=== PATIENT | male | born 1995 | race Caucasian/White ===

== ENCOUNTER 2016-10-19 14:14 | Emergency (ER) | payer OTHER ==
[2016-10-19 14:14] VITALS: BMI 22.4
[2016-10-19 14:20] VITALS: BP 136/67; PULSE 70; RESP 18; TEMP 98.2; O2SAT 98
--- NOTE | 2016-10-19 14:32 | ED PDOC ---
Lower Extremity Pain/Injury Time Seen by Provider: 10/19/16 14:25 Chief Complaint (Nursing): Lower Extremity Problem/Injury Chief Complaint (Provider): Left lower extremity pain History Per: Patient History/Exam Limitations: no limitations Onset/Duration Of Symptoms: Days, Waxing/Waning Additional Complaint(s): The patient is a 20yo male, presents to the ED for evaluation of left foot pain s/p straining it while running. Patient reports he heard a cracking noise and after which he was unable to move his foot or bear weight. He denies any numbness or tingling and reports taking Tylenol for pain with minimal relief. Patient offers no additional medical complaints. - Ankle/Foot Currently Unable To: Bear Weight Past Medical History Reviewed: Historical Data, Nursing Documentation, Vital Signs Vital Signs: Last Vital Signs Temp 98.2 F 10/19/16 14:16 Pulse 70 10/19/16 14:16 Resp 18 10/19/16 14:16 BP 136/67 10/19/16 14:16 Pulse Ox 98 10/19/16 14:16 - Medical History PMH: No Chronic Diseases - Surgical History Other surgeries: sebaceous cyst removal - Family History Family History: States: Unknown Family Hx - Living Arrangements Living Arrangements: With Family - Home Medications Home Medications: Ambulatory Orders Medication Instructions Recorded Phenazopyridine [Phenazopyridine 200 mg PO TID #6 tab 12/10/15 HCl] Sulfamethoxazole/Trimethoprim 1 each PO BID #14 tablet 12/10/15 [Bactrim 400-80 mg Tablet] Ibuprofen [Motrin] 600 mg PO Q8 PRN #21 tab 10/19/16 - Allergies Allergies/Adverse Reactions: Allergies Allergy/AdvReac Type Severity Reaction Status Date / Time Penicillins Allergy RASH Verified 12/10/15 14:18 Review of Systems ROS Statement: Except As Marked, All Systems Reviewed And Found Negative Musculoskeletal: Positive for: Foot Pain (left) Neurological: Negative for: Weakness, Numbness Physical Exam - Reviewed Nursing Documentation Reviewed: Yes Vital Signs Reviewed: Yes - Physical Exam Appears: Positive for: Well, Non-toxic, No Acute Distress Head Exam: Positive for: ATRAUMATIC, NORMAL INSPECTION, NORMOCEPHALIC Skin: Positive for: Normal Color, Warm, DRY Eye Exam: Positive for: Normal appearance Neck: Positive for: Normal Cardiovascular/Chest: Positive for: Regular Rate, Rhythm Respiratory: Negative for: Respiratory Distress Extremity: Positive for: Normal ROM, Tenderness (mid foot swelling and tenderness in left foot). Negative for: Deformity Neurologic/Psych: Positive for: Alert, Oriented. Negative for: Motor/Sensory Deficits - ECG O2 Sat by Pulse Oximetry: 98 (RA) Medical Decision Making Medical Decision Making: Time: 1425 Impression: Left foot injury r/o fracture Plan: -- Motrin 600 mg PO -- XR left foot Reassess Time: 1445 Foot XR as read by provider indicated fracture of left 3rd metatarsal. Call placed to podiatry. Seen by podiatry resident in ED. Placed in Correia dressing and Splinted with crutch instruction. Scribe Attestation: Documented by Hoda Garza acting as a scribe for COOKIE Zabala Provider Attestation: All medical record entries made by the Scribe were at my direction and personally dictated by me. I have reviewed the chart and agree that the record accurately reflects my personal performance of the history, physical exam, medical decision making, and the department course for this patient. I have also personally directed, reviewed, and agree with the discharge instructions and disposition. Disposition - Clinical Impression Clinical Impression: Metatarsal bone fracture - Patient ED Disposition Is Patient to be Admitted: No - Disposition Referrals: Patrick Bae DPM [Staff Provider] - Disposition: Routine/Home Disposition Time: 15:34 Condition: FAIR Prescriptions: Ibuprofen [Motrin] 600 mg PO Q8 PRN #21 tab PRN Reason: Pain, Moderate (4-7) Instructions: Foot Fracture in Adults (ED) Forms: [facility] (Mongolian), [facility] ED School/Work Excuse
--- NOTE | 2016-10-19 14:51 | RAD ---
PROCEDURE: Left Foot Radiographs. HISTORY: injury COMPARISON: None. FINDINGS: BONES: Current study reveals a relatively nondisplaced fracture traversing the midshaft 3rd metatarsal with mild overlying dorsal soft tissue swelling. JOINTS: Joint spaces preserved SOFT TISSUES: Normal. OTHER FINDINGS: None. IMPRESSION: Relatively nondisplaced fracture traversing the midshaft 3rd metatarsal with mild overlying dorsal soft tissue swelling.
--- NOTE | 2016-10-20 00:44 | CP.PCM.CON ---
History of Present Illness - History of Present Illness History of Present Illness: 20 year old male seen in the ED for evaluation of left foot pain. Patient states he was attempting to go on a run earlier today, and once he pushed off his left foot he heard a pop in his foot. Patient states that he just recently started running again. Patient states that he went to work after the injury but was unable to move his foot or bear any weight on his L foot. Patient rates pain as 8/10 and is unable to ambulate. Patient states that he took Tylenol prior to his arrival but did not alleviate much pain. (-)dizziness, (-)syncope prior to injury. Patient denies N/V/F/D/C/SOB/calf pain. No other pedal complaints at this time. PMH: unremarkable PSH: sebaceous cyst removal SH: none FH: noncontributory Meds: none All: penicillins Review of Systems - Review of Systems All systems: reviewed and no additional remarkable complaints except (as per HPI ) Past Patient History - Past Social History Smoking Status: Never Smoked - PSYCHIATRIC Hx Substance Use: No - SURGICAL HISTORY Hx Surgeries: Yes Other/Comment: cyst removal from chest. - ANESTHESIA Hx Anesthesia: Yes Hx Anesthesia Reactions: No Meds Home Medications: Home Medication List Medication Instructions Recorded Confirmed Type Ibuprofen [Motrin] 600 mg PO Q8 PRN #21 tab 10/19/16 Rx Allergies/Adverse Reactions: Allergies Allergy/AdvReac Type Severity Reaction Status Date / Time Penicillins Allergy RASH Verified 12/10/15 14:18 Physical Exam - Constitutional Appears: Well, Non-toxic, No Acute Distress - Extremities Exam Additional comments: LLE focused physical exam: Vasc: DP and PT pulses 2/4. CFT <3 seconds to all digits x5. Hair growth noted to foot. Nonpitting edema noted to dorsal forefoot. Neuro: Gross sensation intact. Derm: Ecchymosis noted to dorsal midfoot. No open lesions, rashes, or subcutaneous nodules noted. Ortho: Pain on palpation noted to dorsal 3rd met shaft. No pain on palpation noted to plantar 3rd met shaft. Pain on medial and lateral squeeze of forefoot. Muscle strength 4/5 dorsiflexors and plantarflexors with pain/guarding noted. - Neurological Exam Neurological exam: Alert, Oriented x3 - Psychiatric Exam Psychiatric exam: Normal Affect, Normal Mood Results - Vital Signs Recent Vital Signs: Last Vital Signs Temp 98.2 F 10/19/16 14:16 Pulse 70 10/19/16 14:16 Resp 18 10/19/16 14:16 BP 136/67 10/19/16 14:16 Pulse Ox 98 10/19/16 15:35 Assessment & Plan - Assessment and Plan (Free Text) Assessment: 20 year old M with unremarkable PMH with nondisplaced fracture of L 3rd metatarsal shaft Plan: Patient seen and evaluated. Discussed with attending, Dr. Kan Chart and vitals reviewed = afebrile L foot XR reviewed: Relatively nondisplaced fracture traversing the midshaft 3rd metatarsal with mind overlying dorsal soft tissue swelling Posterior splint applied to LLE Recommend RICE therapy Recommend Ibuprofen 600mg PO q8 prn pain Recommend dispensing crutches. Patient is to be NWB w crutches to LLE Stable per podiatry standpoint Patient is to follow up with Dr. Kan in office next week Thank you for this consult, please reconsult podiatry again as needed - Date & Time Date: 10/19/16 Time: 15:00
== END 2016-10-19 16:17 | disposition home or self-care (01) ==
LOC: H.ER 14:14
DX: S92.335A Nondisplaced fracture of third metatarsal bone, left foot, initial encounter for closed fracture (principal); Y93.02 Activity, running; Y93.9 Activity, unspecified